=== PATIENT | female | born 1965 | race Caucasian/White ===

== ENCOUNTER 2021-01-25 09:44 | Observation (INO) ==
[2021-01-25] MEDS ORDERED: *HR* Metoprolol 5 MG/5 ML VIAL IVP PRN (10:38)
[2021-01-25] MEDS ORDERED: Ondansetron 4 MG/2 ML VIAL IVP PRN (10:38)
[2021-01-25] MEDS ORDERED: Clindamycin 900 MG/50 ML 900 MG/50 ML IV.SOLN IVPB SCH (16:00)
[2021-01-25] MEDS ORDERED: D5% in Water 1,000 ML IVC PRN (16:28)
[2021-01-25] MEDS ORDERED: *HR* Dextrose 50 % in Water (Syg) 50 ML SYRINGE IVP PRN (16:28)
[2021-01-25] MEDS ORDERED: Dextrose Gel 15 GM/37.5 ML TUBE PO PRN ×2 (16:28)
[2021-01-25] MEDS: 0.9 % Sodium Chloride 1,000 ML IVC SCH ×2 (16:52→17:16)
[2021-01-25] MEDS: Pantoprazole 40 MG VIAL IVP SCH ×2 (17:05→17:16)
[2021-01-25] MEDS: Insulin LISPRO 300 UNITS/3 ML VIAL SUBQ SCH (17:10)
[2021-01-25] MEDS ORDERED: *HR* OxyCODONE Immed Rel 5 MG TABLET PO PRN (17:41)
[2021-01-25 18:54] LABS: Basophils # 0.1 K/mcL (0.0-0.2); Basophils % 0.6 %; Eosinophils # 0.3 K/mcL (0.0-0.6); Hematocrit 38.1 % (35.3-44.9); Hemoglobin 12.4 g/dL (11.5-15.4); Immature Granulocytes % 0.3 % (0-4); Lymphocytes % 37.4 %; Mean Corpuscular HGB Conc 32.5 g/dL (31.6-35.5); Monocytes # 0.5 K/mcL (0.0-1.3); Monocytes % 5.1 %; Neutrophils # 5.7 K/mcL (1.6-8.9); Platelet Count 286 K/mcL (140-400); Red Blood Count 4.43 M/mcL (3.82-4.97); Red Cell Distribution Width 14.3 % (11.5-14.5); Segmented Neutrophils % 53.6 %; White Blood Count 10.6 K/mcL (4.3-11.1)
[2021-01-25 19:13] LABS: Alanine Aminotransferase 49 Units/L (7-52); Albumin 4.1 g/dL (3.5-5.7); Albumin/Globulin Ratio 1.5 (1.1-2.2); Alkaline Phosphatase 89 Units/L (34-104); Aspartate Amino Transferase 20 Units/L (13-39); BUN/Creatinine Ratio 14 (6-26); Bilirubin,Indirect 0.4 mg/dL (0.0-1.0); Bilirubin,Total 0.4 mg/dL (0.3-1.0); Blood Urea Nitrogen 13 mg/dL (6-20); Calcium 9.9 mg/dL (8.6-10.3); Carbon Dioxide 26 mEq/L (23-29); Chloride 103 mEq/L (98-107); Globulin 2.8 g/dL (2.4-3.5); Glucose 123 mg/dL (70-105); Osmolality,Calculated 287 (280-300); Potassium 3.7 mEq/L (3.5-5.1); Sodium 138 mEq/L (136-145); Total Protein 6.9 g/dL (6.4-8.9); eGFR For African Americans > 60 (> 60); eGFR For Non-African Americans > 60 (> 60)
[2021-01-25] MEDS: Gabapentin 400 MG CAPSULE PO SCH (20:21)
[2021-01-25] MEDS ORDERED: PRAZOSIN HCL 2 MG PO SCH (21:00)
[2021-01-25] MEDS ORDERED: Insulin LISPRO 300 UNITS/3 ML VIAL SUBQ SCH (21:00)
[2021-01-26] MEDS ORDERED: (Linaclotide [Linzess] 290 MCG Capsule) PO SCH (06:30)
[2021-01-26] MEDS ORDERED: Lidocaine HCL 4 ML Topical Solution (Laryng-O-Jet Kit Sterile Pak) TP ONE (07:18)
[2021-01-26] MEDS ORDERED: *HR* Propofol 200 MG/20 ML VIAL IVP ONE (07:18)
[2021-01-26] MEDS ORDERED: Ondansetron 4 MG/2 ML VIAL ONE ×2 (07:18→09:17)
[2021-01-26] MEDS ORDERED: *HR* Rocuronium Bromide 50 MG/5 ML VIAL ONE (07:18)
[2021-01-26] MEDS ORDERED: Lidocaine -MPF 2% 5 ML VIAL ONE (07:18)
[2021-01-26] MEDS ORDERED: *HR* Midazolam HCl 2 MG/2 ML VIAL ONE (07:22)
[2021-01-26] MEDS ORDERED: *HR* FentaNYL (PF) 100 MCG/2 ML VIAL ONE ×2 (07:22→08:30)
[2021-01-26] MEDS ORDERED: Clindamycin 900 MG/50 ML 900 MG/50 ML IV.SOLN IVPB ONE ×2 (07:37→07:41)
[2021-01-26] MEDS ORDERED: Famotidine 20 MG/2 ML VIAL IVP ONE (07:38)
[2021-01-26] MEDS ORDERED: *HR* HYDROmorphone 2 MG TABLET PO PRN (07:38)
[2021-01-26] MEDS ORDERED: *HR* OxyCODONE Immed Rel 5 MG TABLET PO PRN (07:38)
[2021-01-26] MEDS ORDERED: *HR* Labetalol 20 MG/4 ML SYRINGE IVP PRN (07:38)
[2021-01-26] MEDS ORDERED: Acetaminophen IV 1,000 MG/100 ML BAG IVPB ONE ×2 (07:38→08:00)
[2021-01-26] MEDS ORDERED: Scopolamine Patch 1.5 MG PATCH.TD72 ONE (07:59)
[2021-01-26] MEDS ORDERED: Famotidine 20 MG/2 ML VIAL ONE (08:00)
[2021-01-26] MEDS ORDERED: Sugammadex Sodium 200 MG/2 ML VIAL IV ONE (08:19)
[2021-01-26] MEDS ORDERED: lisinopriL 10 MG TABLET PO SCH (09:00)
[2021-01-26] MEDS: *HR* HYDROmorphone (PF) 1 MG/ML SYRINGE IVP PRN ×3 (09:12→09:32)
[2021-01-26] MEDS ORDERED: Ondansetron 4 MG/2 ML VIAL IVP ONE (09:16)
[2021-01-26] MEDS ORDERED: FLU Vac QV 21-22 (6Month+)/PF 0.5 ML SYRINGE IM ONE (10:09)
[2021-01-26] MEDS: Gabapentin 400 MG CAPSULE PO SCH (10:19)
[2021-01-26] MEDS: Insulin LISPRO 300 UNITS/3 ML VIAL SUBQ SCH (10:19)
[2021-01-26] MEDS: Pantoprazole 40 MG VIAL IVP SCH (10:19)
[2021-01-26] MEDS: 0.9 % Sodium Chloride 1,000 ML IVC SCH (10:20)
[2021-01-26 11:42] VITALS: BP 131/84; PULSE 90; TEMP 98.3; O2SAT 94
== END 2021-01-26 12:04 | disposition home or self-care (01) ==
LOC: 3ANU → SUATTDRO 15:44
PROVIDERS: ADMIT Surgery; ATTEND Surgery

== ENCOUNTER 2021-06-25 11:34 | Observation (INO) ==
[2021-06-25 12:43] LABS: Basophils # 0.1 K/mcL (0.0-0.2); Basophils % 0.7 %; Eosinophils # 0.2 K/mcL (0.0-0.6); Eosinophils % 2.6 %; Hematocrit 36.9 % (35.3-44.9); Hemoglobin 12.5 g/dL (11.5-15.4); Immature Granulocytes % 0.3 % (0-4); Lymphocytes # 2.6 K/mcL (0.6-4.6); Lymphocytes % 29.1 %; Mean Corpuscular HGB Conc 33.9 g/dL (31.6-35.5); Mean Corpuscular Hemoglobin 30.6 pg (28.0-33.3); Mean Corpuscular Volume 90.4 fL (83.0-100.0); Monocytes # 0.6 K/mcL (0.0-1.3); Monocytes % 6.9 %; Neutrophils # 5.3 K/mcL (1.6-8.9); Platelet Count 274 K/mcL (140-400); Red Blood Count 4.08 M/mcL (3.82-4.97); Red Cell Distribution Width 14.3 % (11.5-14.5); Segmented Neutrophils % 60.4 %; White Blood Count 8.8 K/mcL (4.3-11.1)
[2021-06-25 13:16] LABS: BUN/Creatinine Ratio 16 (6-26); Blood Urea Nitrogen 15 mg/dL (6-20); Calcium 9.8 mg/dL (8.6-10.3); Carbon Dioxide 25 mEq/L (23-29); Chloride 99 mEq/L (98-107); Glucose 106 mg/dL (70-105); Osmolality,Calculated 287 (280-300); Potassium 3.5 mEq/L (3.5-5.1); Sodium 138 mEq/L (136-145); Troponin I < 0.03 ng/mL (< 0.04); eGFR For African Americans > 60 (> 60); eGFR For Non-African Americans > 60 (> 60)
[2021-06-25] MEDS ORDERED: Naloxone 0.4 MG/ML INJ IVP PRN (13:38)
[2021-06-25] MEDS ORDERED: Dextrose 4 GM Chewable Tablets PO PRN ×2 (14:06)
[2021-06-25] MEDS ORDERED: D5% in Water 1,000 ML IVC PRN (14:06)
[2021-06-25] MEDS ORDERED: *HR* Dextrose 50 % in Water (Syg) 50 ML SYRINGE IVP PRN (14:06)
[2021-06-25] MEDS ORDERED: Nitroglycerin 0.4 MG TAB.SUBL SL PRN (16:26)
[2021-06-25] MEDS ORDERED: *HR* Heparin 5,000 UNIT/ML VIAL IVP ONE (17:10)
[2021-06-25] MEDS ORDERED: *HR* Heparin 5,000 UNIT/ML VIAL IVP PRN ×2 (17:10)
[2021-06-25] MEDS ORDERED: Heparin 25,000UNIT/250ML 1/2NS 25,000 UNIT/250 ML IV.SOLN IVC SCH (17:15)
[2021-06-25] MEDS ORDERED: *HR* Heparin 5,000 UNIT/ML VIAL SQ SCH (18:00)
[2021-06-25] MEDS: Gabapentin 400 MG CAPSULE PO SCH (18:03)
[2021-06-25] MEDS: Aspirin Enteric Coated 81 MG Tablet PO SCH (18:03)
[2021-06-25] MEDS: Insulin LISPRO 300 UNITS/3 ML VIAL SUBQ SCH ×2 (18:04→21:34)
[2021-06-25] MEDS ORDERED: Mirtazapine 15 MG TABLET PO SCH (21:00)
[2021-06-25] MEDS ORDERED: Ondansetron 4 MG/2 ML VIAL IVP ONE (23:50)
[2021-06-25] MEDS ORDERED: Acetaminophen 325 MG TABLET PO ONE (23:50)
[2021-06-26 01:45] LABS: Heparin anti-factor XA UFH 0.6 IU/mL (0.30-0.70)
[2021-06-26 01:46] LABS: Prothrombin Time 11.4 Seconds (9.4-12.1)
[2021-06-26 08:06] LABS: Basophils # 0.1 K/mcL (0.0-0.2); Eosinophils # 0.4 K/mcL (0.0-0.6); Eosinophils % 3.7 %; Hematocrit 35.7 % (35.3-44.9); Hemoglobin 11.7 g/dL (11.5-15.4); Immature Granulocytes % 0.2 % (0-4); Lymphocytes # 4.3 K/mcL (0.6-4.6); Lymphocytes % 42.4 %; Mean Corpuscular HGB Conc 32.8 g/dL (31.6-35.5); Mean Corpuscular Hemoglobin 30.3 pg (28.0-33.3); Mean Corpuscular Volume 92.5 fL (83.0-100.0); Mean Platelet Volume 10.3 fL (9.4-12.4); Monocytes # 0.8 K/mcL (0.0-1.3); Monocytes % 7.4 %; Neutrophils # 4.6 K/mcL (1.6-8.9); Nucleated Red Blood Cells 0.2 /100 WBC (0); Platelet Count 303 K/mcL (140-400); Red Blood Count 3.86 M/mcL (3.82-4.97); Red Cell Distribution Width 14.5 % (11.5-14.5); Segmented Neutrophils % 45.3 %; White Blood Count 10.1 K/mcL (4.3-11.1)
[2021-06-26 08:29] LABS: BUN/Creatinine Ratio 16 (6-26); Blood Urea Nitrogen 15 mg/dL (6-20); Calcium 9.5 mg/dL (8.6-10.3); Carbon Dioxide 23 mEq/L (23-29); Chloride 100 mEq/L (98-107); Glucose 152 mg/dL (70-105); Magnesium 1.6 mg/dL (1.6-2.6); Osmolality,Calculated 286 (280-300); Phosphorous 3.9 mg/dL (2.7-4.5); Potassium 3.4 mEq/L (3.5-5.1); Sodium 136 mEq/L (136-145); eGFR For African Americans > 60 (> 60); eGFR For Non-African Americans > 60 (> 60)
[2021-06-26] MEDS ORDERED: Potassium Chloride Elixir 20 MEQ/15 ML UDC PO ONE (09:00)
[2021-06-26] MEDS ORDERED: lisinopriL 10 MG TABLET PO SCH (09:00)
[2021-06-26] MEDS ORDERED: ARIPiprazole 10 MG TABLET PO SCH (09:00)
[2021-06-26] MEDS ORDERED: *HR* Midazolam HCl 2 MG/2 ML VIAL ONE (09:14)
[2021-06-26] MEDS ORDERED: Heparin 1,000 UNITS/500 mL 500 ML ONE (09:14)
[2021-06-26] MEDS ORDERED: *HR* Heparin 10,000 UNIT/10 ML VIAL ONE (09:14)
[2021-06-26] MEDS ORDERED: ISOVUE-370 200 ML INFUS..BTL ONE (09:14)
[2021-06-26] MEDS ORDERED: 0.9 % Sodium Chloride 1,000 ML ONE ×2 (09:14→09:26)
[2021-06-26] MEDS ORDERED: *HR* FentaNYL (PF) 100 MCG/2 ML VIAL ONE (09:14)
[2021-06-26] MEDS ORDERED: Nitroglycerin 1,000 MCG/5 ML VIAL IV ONE (09:14)
[2021-06-26] MEDS: Insulin LISPRO 300 UNITS/3 ML VIAL SUBQ SCH ×4 (09:15→20:11)
[2021-06-26] MEDS: Metoprolol XL (24 HR) Succ 25 MG TAB.ER.24H PO SCH (09:16)
[2021-06-26] MEDS: Furosemide 20 MG TABLET PO SCH (09:16)
[2021-06-26] MEDS: Aspirin Enteric Coated 81 MG Tablet PO SCH (09:16)
[2021-06-26] MEDS: Insulin DETEMIR 100 UNIT/ML X5UNITS SUBQ SCH (09:25)
[2021-06-26 10:28] LABS: Folate > 22.3 ng/mL (3.0-16.0); Vitamin B12 669 pg/mL (250-1100)
[2021-06-26] MEDS: 0.9 % Sodium Chloride 1,000 ML IVC SCH ×2 (10:30→20:46)
[2021-06-26] MEDS: Gabapentin 400 MG CAPSULE PO SCH (17:53)
[2021-06-26] MEDS: Mirtazapine 15 MG TABLET PO SCH (19:40)
[2021-06-27] MEDS: 0.9 % Sodium Chloride 1,000 ML IVC SCH ×2 (06:51→16:18)
[2021-06-27] MEDS ORDERED: Isovue-370 500 ML BOTTLE IVP ONE ×2 (07:56→10:55)
[2021-06-27 08:34] LABS: BUN/Creatinine Ratio 13 (6-26); Blood Urea Nitrogen 10 mg/dL (6-20); Carbon Dioxide 23 mEq/L (23-29); Chloride 109 mEq/L (98-107); Glucose 190 mg/dL (70-105); Magnesium 1.6 mg/dL (1.6-2.6); Osmolality,Calculated 294 (280-300); Potassium 3.9 mEq/L (3.5-5.1); Sodium 140 mEq/L (136-145); eGFR For African Americans > 60 (> 60); eGFR For Non-African Americans > 60 (> 60)
[2021-06-27] MEDS: Insulin LISPRO 300 UNITS/3 ML VIAL SUBQ SCH ×4 (08:45→20:23)
[2021-06-27] MEDS: Metoprolol XL (24 HR) Succ 25 MG TAB.ER.24H PO SCH (09:00)
[2021-06-27] MEDS: Furosemide 20 MG TABLET PO SCH (09:00)
[2021-06-27] MEDS: Aspirin Enteric Coated 81 MG Tablet PO SCH (09:00)
[2021-06-27] MEDS: ARIPiprazole 10 MG TABLET PO SCH (09:00)
[2021-06-27] MEDS: Insulin DETEMIR 100 UNIT/ML X5UNITS SUBQ SCH (09:01)
[2021-06-27] MEDS: Gabapentin 400 MG CAPSULE PO SCH (17:18)
[2021-06-27] MEDS: Mirtazapine 15 MG TABLET PO SCH (20:23)
[2021-06-28] MEDS: Insulin LISPRO 300 UNITS/3 ML VIAL SUBQ SCH ×2 (07:10→11:46)
[2021-06-28] MEDS: Metoprolol XL (24 HR) Succ 25 MG TAB.ER.24H PO SCH (08:48)
[2021-06-28] MEDS: Insulin DETEMIR 100 UNIT/ML X5UNITS SUBQ SCH (08:48)
[2021-06-28] MEDS: Aspirin Enteric Coated 81 MG Tablet PO SCH (08:48)
[2021-06-28] MEDS: Furosemide 20 MG TABLET PO SCH (08:48)
[2021-06-28] MEDS: ARIPiprazole 10 MG TABLET PO SCH (08:48)
[2021-06-28 10:12] VITALS: BP 115/74; PULSE 74; TEMP 98.3; O2SAT 97
== END 2021-06-28 14:24 | disposition home health service (06) ==
LOC: EMEROOARM 11:34 → 3BNU 11:34 → SUATTDRO 13:44 → 3BNU 14:24
PROVIDERS: ADMIT Internal Medicine; ATTEND Internal Medicine